=== PATIENT | male | born 1980 | race American Indian/Alaskan Native ===

== ENCOUNTER 2019-09-15 14:06 | Emergency (ER) | payer OTHER ==
[2019-09-15 14:20] VITALS: BP 132/88
[2019-09-15] MEDS ORDERED: LIDOCAINE (1%) 10 MG/1 ML VIAL 20 ML MDV INFILTRATI ONE (16:22)
--- NOTE | 2019-09-15 16:33 | Emergency Department Report ---
ED General Adult HPI - General Chief complaint: Extremity Injury, Lower Stated complaint: INGROWN NAIL Time Seen by Provider: 09/15/19 16:00 Source: patient Mode of arrival: Ambulatory Limitations: No Limitations - History of Present Illness Initial comments: 38-year-old -[place] male patient presents with complaints of left ingrown toenail x3 weeks, worsening x1 week. He rates his pain as a 10/10 in severity and states the toe is swollen and draining mild pus. He denies any fever/chills/sweats or history of diabetes or HIV. Patient denies any injury to the toe -: Gradual Severity scale (0 -10): 10 Quality: aching, constant - Related Data Previous Rx's Medication Instructions Recorded Last Taken Type Albuterol INH(or & Nicu Only) 2 puff IH QID PRN #1 inhalation 05/05/14 Unknown Rx [ProAir HFA Inhaler] Azithromycin [Zithromax Z-COLE] 250 mg PO DAILY #6 tablet 05/05/14 Unknown Rx Ibuprofen [Motrin 600 MG tab] 600 mg PO Q8H PRN #15 tablet 05/05/14 Unknown Rx Acetaminophen/Codeine [Tylenol 1 tab PO Q6H PRN #10 tab 09/15/19 Unknown Rx /Codeine # 3 tab] Ibuprofen [Motrin 800 MG tab] 800 mg PO Q8HR PRN #21 tablet 09/15/19 Unknown Rx Mupirocin [Bactroban 2% OINT] 1 applic TP TID 10 Days #1 tube 09/15/19 Unknown Rx Sulfamethoxazole/Trimethoprim 1 each PO BID 10 Days #20 tablet 09/15/19 Unknown Rx [Bactrim DS TAB] Allergies Allergy/AdvReac Type Severity Reaction Status Date / Time No Known Allergies Allergy Verified 05/05/14 00:21 ED Review of Systems ROS: Stated complaint: INGROWN NAIL Other details as noted in HPI Constitutional: denies: chills, fever Musculoskeletal: joint swelling, arthralgia Skin: lesions. denies: change in color ED Past Medical Hx - Past Medical History Previous Medical History?: No - Surgical History Past Surgical History?: No - Social History Smoking Status: Never Smoker Substance Use Type: None - Medications Home Medications: Home Medications Medication Instructions Recorded Confirmed Last Taken Type Albuterol INH(or & Nicu Only) 2 puff IH QID PRN #1 inhalation 05/05/14 Unknown Rx [ProAir HFA Inhaler] Azithromycin [Zithromax Z-COLE] 250 mg PO DAILY #6 tablet 05/05/14 Unknown Rx Ibuprofen [Motrin 600 MG tab] 600 mg PO Q8H PRN #15 tablet 05/05/14 Unknown Rx Acetaminophen/Codeine [Tylenol 1 tab PO Q6H PRN #10 tab 09/15/19 Unknown Rx /Codeine # 3 tab] Ibuprofen [Motrin 800 MG tab] 800 mg PO Q8HR PRN #21 tablet 09/15/19 Unknown Rx Mupirocin [Bactroban 2% OINT] 1 applic TP TID 10 Days #1 tube 09/15/19 Unknown Rx Sulfamethoxazole/Trimethoprim 1 each PO BID 10 Days #20 tablet 09/15/19 Unknown Rx [Bactrim DS TAB] ED Physical Exam - General Limitations: No Limitations General appearance: alert, in no apparent distress - Head Head exam: Present: atraumatic, normocephalic - Eye Eye exam: Present: normal appearance - Respiratory Respiratory exam: Absent: respiratory distress - Cardiovascular Cardiovascular Exam: Present: regular rate - Extremities Exam Extremities exam: Present: joint swelling (Ingrown toenail noted to left great toe at the lateral aspect with mild adjacent infection, yellow crusting, and swelling noted. No active drainage, erythema or cellulitic changes noted. Patient has full range of motion of the toe and normal perfusion.) - Neurological Exam Neurological exam: Present: alert, oriented X3 ED Course Vital Signs 09/15/19 14:15 Temperature 98.0 F Pulse Rate 85 Respiratory 16 Rate Blood Pressure 132/88 O2 Sat by Pulse 99 Oximetry - I & D Toe Type of Procedure: Simple Site: Left great toe partial nail removal I & D Procedure: betadine prep, sterile drapes applied, sterile dressing applied Progress: Lidocaine 1% was used to digitally block the first great toe on the left. Minimal bleeding occurred. Patient tolerated procedure well without any immediate complications. Normal range of motion of toes and normal perfusion noted post procedure. ED Medical Decision Making - Medical Decision Making Patient presents for painful left ingrown toenail worsening for the past week. No purulent drainage noted on exam or cellulitis. Partial nail removal performed. Patient tolerated procedure well. He is afebrile and non- tachycardic. Sterile dressing was placed on the wound along with Neosporin. Patient is stable for discharge home. Prescriptions for Bactrim and mupirocin given. Recommend follow-up with his primary care provider within 3 to 5 days. Discussed wound care instructions in detail and strict return precautions in detail with patient who verbalizes understanding. Critical care attestation.: If time is entered above; I have spent that time in minutes in the direct care of this critically ill patient, excluding procedure time. ED Disposition Clinical Impression: Ingrown toenail of left foot with infection Disposition: TO HOME OR SELFCARE Is pt being admited?: No Condition: Stable Instructions: Toenail/Fingernail Removal (ED), Ingrown Nail (ED), Paronychia (ED) Prescriptions: Sulfamethoxazole/Trimethoprim [Bactrim DS TAB] 1 each PO BID 10 Days #20 tablet Mupirocin [Bactroban 2% OINT] 1 applic TP TID 10 Days #1 tube Ibuprofen [Motrin 800 MG tab] 800 mg PO Q8HR PRN #21 tablet PRN Reason: pain Acetaminophen/Codeine [Tylenol /Codeine # 3 tab] 1 tab PO Q6H PRN #10 tab PRN Reason: Pain , Severe (7-10) Referrals: PRIMARY CARE, [Primary Care Provider] - 3-5 Days
[2019-09-15] MEDS ORDERED: NEOMY 3.5 MG/BACIT 400 UNITS/POLY B 5000 UNITS/GM OINT PACKET TP ONE (17:44)
== END 2019-09-15 18:03 | disposition home or self-care (01) ==
LOC: ED 14:06
DX: L60.0 Ingrowing nail (principal)
CPT/HCPCS: 99282; A6250